=== PATIENT | female | born 1965 | race Caucasian/White ===

== ENCOUNTER → 2018-09-26 12:55 | Outpatient (CLI) | payer BC, SELFPAY ==
--- NOTE | 2018-09-26 13:04 | RAD_ITS ---
STUDY: X-RAY - CERVICAL SPINE REASON FOR EXAM: Female, 52 years old. Left-sided neck pain for one and half years after lifting a heavy object. Progressive worsening over time. TECHNIQUE: 8 view(s) of the cervical spine were obtained. COMPARISON: None FINDINGS: There are degenerative changes of the anterior atlantoaxial articulation. Normal odontoid process. There is mild flattening of the cervical lordosis. There is multi-level endplate spondylosis. There is multi-level degenerative disc disease with multilevel disc space narrowing. This is most marked at C5-6. There is neural foraminal narrowing on the left at C6-7 and C7-T1 and on the right at C2-3 and C3-4. There is no evidence of acute fracture or loss of vertebral axial height. There is maintenance of normal alignment. There is no change in alignment with flexion or extension. The soft tissue structures are unremarkable. RAD/Cerv Spine 4 or 5 Views IMPRESSION: Degenerative changes of cervical spine without acute fracture or subluxation. There is no evidence of vertebral instability. Electronically Signed: Carl Altamirano DO at 16:11 EDT Tel [phone], Service support ,
--- NOTE | 2018-09-26 13:05 | RAD_ITS ---
STUDY: X-RAY - LUMBAR SPINE REASON FOR EXAM: Female, 52 years old. Lower back pain radiating into the right leg. Progressive worsening. TECHNIQUE: 7 view(s) of the lumbar spine were obtained. COMPARISON: None FINDINGS: Normal lumbar lordosis. There is very minimal dextroscoliosis with convexity at L3. Question minimal anterolisthesis of L4 on L5. The alignment is otherwise preserved. Normal vertebral bodies and endplates. There is minimal disc space narrowing at L5-S1. There is no evidence of acute fracture or loss of vertebral axial height. There is no demonstrated spondylolysis of the pars interarticulares. The soft tissue structures are unremarkable. RAD/L/S Spine Min 4 Views IMPRESSION: 1. Minimal degenerative changes of the lumbar spine. 2. Question mild spondylolisthesis at L4-5. Electronically Signed: Carl Altamirano DO at 16:15 EDT Tel [phone], Service support ,
== END ==
PROVIDERS: Family Provider Family Medicine; PCP Family Medicine; Referring Provider Family Medicine; Visit Provider Family Medicine
DX: M54.9 Dorsalgia, unspecified (principal)
CPT/HCPCS: 72050; 72110

== ENCOUNTER 2018-11-29 17:00 | Outpatient (RCR) | payer BC, SELFPAY ==
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
--- NOTE | 2018-11-29 18:00 | HP.PTDCSUM ---
HP - PT D/C Summary It has been my pleasure to treat MICHELLE PANG under orders from Ness Hernandez DO, for the diagnosis of Neck pain, LBP for a total of 6 visit(s). Discharge Date: 11/29/18 Please see the following information for a summary of their discharge status. - Subjective Subjective: Helps. 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 Neck is much better. Feels like she can continue on own from this point. No f/u with doctor. in am and then it works out. - Pain Neck pain Pain Intensity (Out of 10): 0 LBP Pain Intensity (Out of 10): 3 - Overall Improvement % Improvement: 50 - Objective Objective/Function: LB flexion still mod limtied adn ext min limited with pulling pain in both directions but can stand up adn put shoes on in upright position right now. Neck ROM is full at 70 ext adn 80 B rotation without pain today. UE AROM WNL and strength 4+/5. PT DOING BETTER ADN HAS HARD TIME MAKING IT IN FOR THERAPY. SHE WISHES TO COTNINUE VIA HEP AND WILL CONTACT DOCTOR IF PAIN DOES NTO CONTINUE TO IMPROVE. - Goals Goal 1:: Full neck AROM and LB AROM without pain. Goal Progress: Progressing Goal 2:: Patient feel 90% better in neck poain at 1/10 at worst and abolish LBP Goal Progress: Progressing Goal 3:: Resume riding 4 kaur without hesitation Goal 4:: Pt I in appropr HEP to minimize future problems Goal Progress: Goal Met - Plan Plan: D/C - D/C Information Discharge Comments: Pt to cotninue via HEP and contact doctor if pain doesn't continue to improve. If there are questions or concerns regarding this patient's physical therapy, please feel free to call me at [phone]. Thank you for the referral of this patient. Sincerely, Aftab Ellis, DPT, OCS, CSCS
== END 2018-11-29 19:00 | disposition home or self-care (01) ==
LOC: PT 17:00
PROVIDERS: Family Provider Family Medicine; PCP Family Medicine; Visit Provider Family Medicine
DX: M54.2 Cervicalgia (principal); R20.0 Anesthesia of skin; M54.16 Radiculopathy, lumbar region
CPT/HCPCS: 97110; 97162; 97530

== ENCOUNTER → 2019-09-26 10:25 | Outpatient (CLI) | payer BC, SELFPAY ==
--- NOTE | 2019-09-26 10:35 | BI_ITS ---
MAMMOGRAPHY - BILATERAL SCREENING REASON FOR EXAM: Female, 53 years old. Routine annual screening examination. PERTINENT HISTORY: Aunt with breast cancer. TECHNIQUE: Digital bilateral breast clotilde (3D mammographic acquisition) in the CC and MLO projections. 2-D mediolateral oblique (MLO) and craniocaudad (CC) views of both breasts were obtained. CAD: Full Field Digital Mammography with Computer Added Detection was performed. COMPARISON: Comparison is made with prior outside examination dated September 18, 2018. FINDINGS: Breast Composition: There are scattered areas of fibroglandular density. There are no dominant masses or suspicious calcifications. Stable benign-appearing bilateral axillary lymph nodes. No other significant abnormalities are identified. There has been no significant change since the prior study. BI/SCREEN MAMM (CAD) W/CLOTILDE BILAT IMPRESSION: Stable bilateral screening mammogram. Yearly follow-up mammogram recommended. (A) ASSESSMENT CATEGORY: BIRADS Category 2: Benign. A letter regarding these results will be sent to the patient by the facility within 30 days. Approximately 10% of breast cancers are not detected by mammography. A normal mammogram should not delay biopsy of a clinically suspicious abnormality. [id number] Electronically Signed: Manuel Briones, at 12:20 EDT , Service support ,
== END ==
PROVIDERS: PCP Family Medicine; Referring Provider Family Medicine; Visit Provider Obstetrics & Gynecology
DX: Z12.31 Encounter for screening mammogram for malignant neoplasm of breast (principal)
CPT/HCPCS: 77063; 77067

== ENCOUNTER → 2020-08-19 14:37 | Outpatient (CLI) | payer BC, SELFPAY ==
[2020-08-19 18:21] LABS: Free T3 2.1 pg/mL (2.18-3.98); T4 Free Direct 0.79 ng/dL (0.76-1.46); Thyroid Stim Hormone (TSH) 2.35 uIU/mL (0.358-3.74)
[2020-08-28 04:10] LABS: Thyroid Stim Immunoglob <0.10 IU/L (0.00-0.55)
[2020-08-28 12:27] LABS: Anti-Thyroglobulin AB 67.5 IU/mL (0.0-0.9); Thyroglobulin RIA 7.4 ng/mL (.)
== END ==
PROVIDERS: PCP Family Medicine
DX: H02.534 Eyelid retraction left upper eyelid (principal); H02.531 Eyelid retraction right upper eyelid
CPT/HCPCS: 36415; 84432; 84439; 84443; 84445; 84481; 86800

== ENCOUNTER → 2020-10-16 14:19 | Outpatient (CLI) | payer BC, SELFPAY ==
--- NOTE | 2020-10-16 14:22 | BI_ITS ---
MAMMOGRAPHY - BILATERAL SCREENING REASON FOR EXAM: Female, 54 years old. Routine annual screening examination. PERTINENT HISTORY: Aunt with breast cancer. History of prior bilateral breast reduction with breast lift. TECHNIQUE: Digital bilateral breast clotilde (3D mammographic acquisition) in the CC and MLO projections. 2-D mediolateral oblique (MLO) and craniocaudad (CC) views of both breasts were obtained. CAD: Full Field Digital Mammography with Computer Added Detection was performed. COMPARISON: Comparison is made with prior study dated 09/26/2019. FINDINGS: Breast Composition: The breasts are heterogeneously dense, which may obscure small masses. There are no dominant masses or suspicious calcifications. Stable small benign appearing bilateral axillary adenopathy. No other significant abnormalities are identified. There has been no significant change since the prior study. BI/SCRN MAMM (CAD)W/CLOTILDE BILAT IMPRESSION: Stable bilateral screening mammogram. Yearly follow-up mammogram recommended. (A) ASSESSMENT CATEGORY: BIRADS Category 2: Benign. A letter regarding these results will be sent to the patient by the facility within 30 days. Approximately 10% of breast cancers are not detected by mammography. A normal mammogram should not delay biopsy of a clinically suspicious abnormality. [id number] Electronically Signed: Manuel Briones MD at 15:13 EDT , Service support ,
== END ==
PROVIDERS: PCP Family Medicine; Referring Provider Family Medicine; Visit Provider Family Medicine
DX: Z12.31 Encounter for screening mammogram for malignant neoplasm of breast (principal)
CPT/HCPCS: 77063; 77067

== ENCOUNTER → 2021-10-27 | Outpatient (CLI) | payer BC, SELFPAY ==
[2021-10-27 09:59] LABS: Hematocrit 40.9 % (37-47); Hemoglobin 12.9 g/dL (12.0-15.0); Mean Corp Hgb Conc 31.5 g/dL (32-36); Mean Corpuscular Hgb 29.9 pg (27.0-32.0); Mean Corpuscular Volume 94.7 fL (81-99); Platelet Count 300 K/mm3 (150-450); RBC Distribution Width CV 13.2 % (11.6-14.6); RBC Distribution Width SD 46.1 fl (35.1-43.9); Red Blood Count 4.32 M/mm3 (4.2-5.4); White Blood Count 4.2 K/mm3 (4.4-11.0)
[2021-10-27 10:49] LABS: AST(SGOT) 15 U/L (15-37); Alanine Aminotransfer ALT/SGPT 22 U/L (13-56); Albumin, Serum 3.9 g/dL (3.2-5.0); Alkaline Phosphatase 63 U/L (45-117); Anion Gap 6 (5-15); BUN 15 mg/dL (7-18); BUN/Creat Ratio 19.3 RATIO (10-20); Chloride 107 mmol/L (98-107); Cholesterol 264 mg/dL (200); Creatinine, Serum 0.78 mg/dL (0.55-1.02); EST Glomerular Filtration Rate 81 mL/min (>60); Est Glom Filt Rate - Afr Amer 98 mL/min (>60); Free T3 2.7 pg/mL (2.18-3.98); Globulin 3.9 g/dL (2.2-4.2); Glucose 88 mg/dL (74-106); High Density Lipoprotein 58 mg/dL; Protein, Total 7.8 g/dL (6.4-8.2); Sodium Level 140 mmol/L (136-145); T4 Free Direct 0.74 ng/dL (0.76-1.46); Triglycerides 120 mg/dL; Very Low Density Lipoprotein 24 mg/dL (5-40)
== END | disposition home or self-care (01) ==
LOC: MTLAB 09:21
PROVIDERS: PCP Family Medicine; Referring Provider Family Medicine; Visit Provider Family Medicine
DX: Z00.00 Encounter for general adult medical examination without abnormal findings (principal); R53.83 Other fatigue
CPT/HCPCS: 36415; 80053; 80061; 84439; 84443; 84481; 85027

== ENCOUNTER → 2022-08-11 | Outpatient (CLI) | payer BC, SELFPAY ==
--- NOTE | 2022-08-11 11:21 | BI_ITS ---
MAMMOGRAPHY - BILATERAL SCREENING REASON FOR EXAM: Female, 56 years old. Routine annual screening examination. PERTINENT HISTORY: Aunt with breast cancer. History of prior bilateral breast reduction surgery. TECHNIQUE: Digital bilateral breast clotilde (3D mammographic acquisition) in the CC and MLO projections. 2-D mediolateral oblique (MLO) and craniocaudad (CC) views of both breasts were obtained. CAD: Full Field Digital Mammography with Computer Added Detection was performed. COMPARISON: Comparison is made with prior examination dated October 16, 2020. FINDINGS: Breast Composition: The breasts are heterogeneously dense, which may obscure small masses. There are no dominant masses or suspicious calcifications. Stable small benign-appearing bilateral axillary lymph nodes. No other significant abnormalities are identified. There has been no significant change since the prior study. BI/SCRN MAMM (CAD)W/CLOTILDE BILAT IMPRESSION: Stable bilateral screening mammogram. Yearly follow-up mammogram recommended. (A) ASSESSMENT CATEGORY: BIRADS Category 2: Benign. A letter regarding these results will be sent to the patient by the facility within 30 days. Approximately 10% of breast cancers are not detected by mammography. A normal mammogram should not delay biopsy of a clinically suspicious abnormality. [id number] Electronically Signed: Manuel Briones MD at 12:22 EDT ,
== END | disposition home or self-care (01) ==
PROVIDERS: PCP Family Medicine; Visit Provider Family Medicine
DX: Z12.31 Encounter for screening mammogram for malignant neoplasm of breast (principal)
CPT/HCPCS: 77063; 77067

== ENCOUNTER → 2024-07-03 | Outpatient (CLI) | payer OTHER, SELFPAY ==
--- NOTE | 2024-07-03 13:47 | BI_ITS ---
PROCEDURE: DIAG MAMM W/CAD, BILAT REASON FOR EXAM: F, Age 58 y/o, prior bilateral breast reduction surgery. Palpable lump at the 8 to 9 o'clock position of the right breast. Aunt with breast cancer. TECHNIQUE: Bilateral screening digital breast tomosynthesis with 2D and 3D images. Computer aided detection. COMPARISON: Prior exam(s) dating back to August 11, 2022.. FINDINGS: The breasts are heterogeneously dense which may obscure small masses. Stable bilateral fat containing axillary lymph nodes. No suspicious masses, areas of developing architectural distortion, or suspicious calcifications.. With the patient's history of a palpable lump at the 8 to 9 o'clock position of the right breast, correlation with ultrasound recommended. BI/DIAG MAMM W/CAD, BILAT IMPRESSION: BI-RADS 0: INCOMPLETE - NEED ADDITIONAL IMAGING EVALUATION. Follow-up code: Sonographic correlation. The patient will be notified of the results by letter. Reading Location: [place] [id number]
--- NOTE | 2024-07-03 13:47 | US_ITS ---
PROCEDURE: BREAST LIMITED UNILATERAL REASON FOR EXAM: Right breast lump. TECHNIQUE: Targeted right breast ultrasound. COMPARISON: Comparison is made with prior mammogram dated July 03, 2024. FINDINGS: RIGHT: Right breast ultrasound was targeted to the lower outer quadrant.. No sonographic abnormality is seen. US/Breast Limited Unilateral IMPRESSION: Category: 1 Follow-up code: Routine Follow-up Reading Location: [id number]
== END | disposition home or self-care (01) ==
PROVIDERS: PCP Family Medicine; Referring Provider Obstetrics & Gynecology; Visit Provider Obstetrics & Gynecology
DX: N64.4 Mastodynia (principal); N63.13 Unspecified lump in the right breast, lower outer quadrant
CPT/HCPCS: 76642; 77062; 77066; G0279